=== PATIENT | male | born 1950 | race Two or more races ===

== ENCOUNTER 2023-02-27 13:48 | Emergency (ER) | payer OTHER ==
[~2023-02-27] VITALS: Ht 162.6 cm; Wt 68.0 kg
[2023-02-27] MEDS ORDERED: UROXATRAL10 MG (14:30)
[2023-02-27 15:44] LABS: HEMOGLOBIN 13.7 g/dL (13-16.00); MEAN CELL VOLUME 94.3 fL (80.0-100.00); MEAN CORPUSCULAR HEMOGLOBIN 32.3 pg (27.00-32.0); MEAN CORPUSCULAR HGB CONC 34.2 g/dl (32.0-36.0); PLATELET COUNT 254 K/uL (150-450); RED BLOOD COUNT 4.24 M/uL (4.00-6.00); RED CELL DISTRIBUTION WIDTH 13.3 % (11.5-14.5)
[2023-02-27 16:32] LABS: ALBUMIN 3.2 gm/dL (3.4-5.0); ALKALINE PHOSPHATASE 81 U/L (50-136); ALT/SGPT 21 U/L (12-78); ANION GAP 8 (10.0-20.0); AST/SGOT 20 U/L (15-37); BILIRUBIN TOTAL 0.32 mg/dL (0.3-1.2); BILIRUBIN,CONJUGATED < 0.10 mg/dL (0.0-0.2); BILIRUBIN,UNCONJUGATED 0.22 mg/dL (0.0-0.6); BLOOD UREA NITROGEN 21 mg/dL (7-18); BUN CREA RATIO 19 (7.0-25.0); CALCIUM 8.5 mg/dL (8.5-10.1); CARBON DIOXIDE 30 mEq/L (21-32); CHLORIDE 99 mmol/L (98-107); CREATININE SERUM 1.08 mg/dL (0.70-1.30); GFR 67.59; GLUCOSE FASTING 113 mg/dL (65-100); LIPASE 90 U/L (13-75); OSMOLALITY SERUM 268 MOSM/KG (275-295); POTASSIUM 4.99 mEq/L (3.5-5.1); SODIUM 132 mmol/L (136-145); TOTAL PROTEIN 7.4 gm/dL (6.4-8.2)
== END 2023-02-27 19:11 | disposition home or self-care (01) ==
LOC: ER 13:48
PROVIDERS: Nurse Practitioner Family
DX: K29.70 Gastritis, unspecified, without bleeding (principal); N40.0 Benign prostatic hyperplasia without lower urinary tract symptoms
CPT/HCPCS: 36415; 74019; 93005; 96365; 96366; 99284; J2405; J3490